=== PATIENT | female | born 1975 | race Caucasian/White ===

== ENCOUNTER 2019-10-26 10:43 | Emergency (ER) | payer BC ==
[~2019-10-26] VITALS: Ht 157.5 cm; Wt 71.0 kg
[2019-10-26 10:50] VITALS: BP 119/77
[2019-10-26] MEDS ORDERED: PRED20TA PO (11:15)
== END 2019-10-26 11:42 | disposition home or self-care (01) ==
LOC: ER 10:44
DX: L23.7 Allergic contact dermatitis due to plants, except food (principal); Z98.51 Tubal ligation status; Z79.899 Other long term (current) drug therapy
CPT/HCPCS: 99283